=== PATIENT | male | born 2000 | race African-American/Black ===

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

== ENCOUNTER 2021-07-15 09:23 | Emergency (ER) | payer OTHER ==
[~2021-07-15] VITALS: Ht 172.7 cm; Wt 104.5 kg
[~2021-07-15 09:23] MED LIST: ERYT5OIN25 OS; IBUP-1022 PO
[2021-07-15 09:24] VITALS: BP 117/56
== END 2021-07-15 10:38 | disposition home or self-care (01) ==
LOC: M ED 09:23
DX: S97.82XA Crushing injury of left foot, initial encounter (principal); S90.822A Blister (nonthermal), left foot, initial encounter; W22.8XXA Striking against or struck by other objects, initial encounter; Y92.9 Unspecified place or not applicable; Y93.9 Activity, unspecified; Y99.0 Civilian activity done for income or pay